=== PATIENT | male | born 1950 | race Caucasian/White ===

== ENCOUNTER 2023-03-29 13:35 | Emergency (ER) | payer MEDICARE, OTHER, SELFPAY ==
[2023-03-29 13:53] VITALS: BP 217/112; PULSE 63; RESP 18; TEMP 36.3; O2SAT 97; BMI 33.2
--- NOTE | 2023-03-29 15:18 | CRLHL7_ITS ---
For Patients: As a result of the Cures Act, medical imaging exams and procedure reports are released immediately into your electronic medical record. You may view this report before your referring provider. If you have questions, please contact your health care provider. INDICATION: Hypertension. TECHNIQUE: AP portable seated upright chest x-ray. COMPARISON: None. FINDINGS: Clear lungs. Normal heart size. No evidence for hilar or mediastinal lymphadenopathy. Advanced degenerative arthritis of the shoulders with near [id number] of the glenohumeral joints. IMPRESSION: No acute cardiopulmonary process identified. Dictated by Grant Sneed MD @ 03/29/2023 4:03:19 PM (Electronically Signed)
[2023-03-29 15:42] LABS: Basophils Absolute Auto 0.01 K/uL (0.00-0.30); Basophils Percent Auto 0.1 % (0.0-3.0); Eosinophils Absolute Auto 0.04 K/uL (0.00-0.50); Eosinophils Percent Auto 0.6 % (0.0-7.0); Hematocrit 44.2 % (37.0-53.0); Hemoglobin* 14.7 gm/dL (13.5-17.5); Lymphocytes Percent Auto 16.4 % (20-44); Mean Corpuscular HGB Conc 33 gm/dL (32-36); Mean Corpuscular Hemoglobin 31 pg (26-34); Mean Corpuscular Volume 94 fL (80-100); Monocytes Percent Auto 6.3 % (0.0-11.0); Neutrophils Percent Auto 76.6 % (42.0-72.0); Platelet Count* 266 K/uL (140-440); RDW Coefficient of Variation % 12.7 % (11.5-15.5); Red Blood Count 4.69 m/uL (4.30-5.90); White Blood Count* 6.94 K/uL (4.50-11.00)
[2023-03-29 16:00] VITALS: PULSE 64; RESP 20; O2SAT 96
[2023-03-29 16:00] LABS: Chloride* 102 mmol/L (96-114)
[2023-03-29 16:01] LABS: Potassium* 3.9 mmol/L (3.6-5.1); Sodium* 138 mmol/L (135-149)
[2023-03-29 16:03] VITALS: BP 211/157
[2023-03-29 16:03] LABS: Creatinine* 0.8 mg/dL (0.5-1.5); Est. Creatinine Clearance* 75.44; Estimated Glomerular Filt Rate 95 ml/min
[2023-03-29 16:04] LABS: Blood Urea Nitrogen* 13 mg/dL (7-30); Calcium* 9.3 mg/dL (8.4-10.6); Carbon Dioxide* 27 mmol/L (20-32); Glucose* 99 mg/dL (60-115)
[2023-03-29 16:05] LABS: Slide Review Reflex No
[2023-03-29 16:13] LABS: Appearance Urine Clear (Clear); Bilirubin Urine Negative (Negative); Blood Urine 2+ (Negative); Color Urine Yellow (Yellow); Glucose Urine Negative (Negative); Ketones Urine Negative (Negative); Leukocyte Esterase Urine Negative (Negative); Nitrite Urine Negative (Negative); Protein Urine Negative (Negative); Urobilinogen Urine 0.2 (0.2-1.0)
--- NOTE | 2023-03-29 16:14 | ED.NURSE ---
Pt reporting a pain level of 7 with his tooth, saying that the pain level comes and goes.
--- NOTE | 2023-03-29 16:23 | CRLHL7_ITS ---
For Patients: As a result of the Cures Act, medical imaging exams and procedure reports are released immediately into your electronic medical record. You may view this report before your referring provider. If you have questions, please contact your health care provider. Indication: Left ankle pain and swelling Technique: Left ankle 3 views Comparison: None Findings: Bones: No evidence of fracture. Joint spaces: Small anterior osteophytes at the left ankle joint. Soft tissues: Soft tissue swelling with some enthesopathic spurring. Impression: Soft tissue swelling without evidence of fracture. Dictated by Elroy Leach MD @ 03/29/2023 5:17:31 PM (Electronically Signed)
[2023-03-29 16:39] LABS: RBC Urine 0-2 (0-2); WBC Urine 0-2 (0-5)
[2023-03-29 16:52] LABS: Erythrocyte SedimentationRate* 13 mm/hr (2-15)
[2023-03-29] MEDS: BUPIVACAINE 0.25% 30 ML INJECTION (16:58)
[2023-03-29] MEDS: AMLODIPINE 5 MG TABLET PO (18:06)
[2023-03-29 19:45] LABS: Albumin* 4.7 g/dL (3.3-5.0)
[2023-03-29 19:48] LABS: Alanine Aminotransferase* 22 U/L (4-50); Alkaline Phosphatase* 58 U/L (40-150); Aspartate Amino Transferase* 33 U/L (12-35); Bilirubin Direct* 0.1 mg/dL (0.0-0.5); Bilirubin Total* 0.8 mg/dL (0.1-1.5); Total Protein* 8.1 g/dL (6.0-8.3)
[2023-03-29 19:57] LABS: NT Pro B Type NatriureticPept* 266 pg/mL
--- NOTE | 2023-03-29 21:28 | ED.GENADULT ---
HPI - General Adult General Chief complaint: High Blood Pressure Stated complaint: High Blood Pressure Time Seen by Provider: 03/29/23 14:18 History of Present Illness HPI narrative: Went to the dentist for extraction and had a high blood pressure readings- 202/ 168. No hx of HTN. Was sent to the ER. Did not get his extraction and was sent home with antibiotics. Continues to have pain in the tooth. 72-year-old man accompanied by spouse to the emergency department concern of elevated blood pressure. Went to the dentist this afternoon and was noted to have rather high blood pressure. Markedly elevated also on presentation here. Typically is not seen in healthcare noting himself to have been historically generally healthy. He is not having any headache blurry vision or nausea or chest pain or shortness of breath. No peripheral edema though incidentally does note that has had intermittent swelling for quite some time and gimping on his left ankle; suspect some arthritis. Dental pain fluctuates between a 2 and a 6 or a 7 perhaps. Dental issue in the right lower jaw has been present for quite some time. Reports suspicion of infection on this visit today and initiated on antibiotics; elite this prescription was provided. Has not been taken yet. Looks to be amoxicillin. Concern as expressed was that would be difficult to anesthetize with presence of infection. Related Data Previous Rx's Medication Instructions Recorded amlodipine 5 mg tablet 5 mg PO DAILY #30 tabs 03/31/23 Allergies Allergy/AdvReac Type Severity Reaction Status Date / Time No Known Drug Allergies Allergy Verified 03/29/23 13:57 Review of Systems Status of ROS: Reports: 6 or more systems reviewed and unremarkable except as noted in History and below PFSH PFS Social History Smoking Status: Former smoker How often do you have a drink containing alcohol: 4 or more times a week How many standard drinks containing alcohol do you have on a typical day: 3 or 4 How often do you have six or more drinks on one occasion: Less than monthly AUDIT-C Alcohol total score: 6 Non-prescribed substance use: denies use service: No Exam Narrative: Exam Narrative: Pleasant. A good energy. Bearded. Larger stature. Extremities are well perfused without edema though notably some swelling of the left ankle. Indicates more some posterior lateral area pain. Appreciate erythematous changes. Cranial nerves 2-12 to be intact. Oropharynx with right posterior most molar is decayed. Nontender to percussion here. Tooth apparently in question is just anterior to that there is some injury here is while not new. I do not appreciate swelling of the gingiva or elsewhere in the neck or jaw. No lymphadenopathy of the cervical chain. Lungs are clear. Heart with lower regular rate and rhythm. Abdomen is overweight. Const: Vital Signs, click to edit/add: Vital Signs - 24 hr 03/29/23 13:53 03/29/23 16:00 03/29/23 16:03 Temperature 97.3 F L Pulse Rate [Pulse Oximeter] 63 64 Respiratory Rate 18 20 Blood Pressure [Ri ght Upper Arm] 217/112 H 211/157 H Pulse Oximetry 97 96 Oxygen Delivery Me thod Room Air Documenting provider has reviewed patient's vital signs: yes Course Vital Signs Vital signs: Initial Vital Signs Temperature 97.3 F L 03/29/23 13:53 Temperature Source Temporal Artery Scan 03/29/23 13:53 Pulse Rate 63 03/29/23 13:53 Respiratory Rate 18 03/29/23 13:53 Blood Pressure 217/112 H 03/29/23 13:53 Blood Pressure Mean 147 H 03/29/23 13:53 Blood Pressure Position Sitting 03/29/23 13:53 Pulse Oximetry 97 03/29/23 13:53 Vital Signs Temperature 97.3 F L 03/29/23 13:53 Pulse Rate 63 03/29/23 13:53 Respiratory Rate 18 03/29/23 13:53 Blood Pressure 217/112 H 03/29/23 13:53 Pulse Oximetry 97 03/29/23 13:53 Temperature 97.3 F L 03/29/23 13:53 Pulse Rate 64 03/29/23 16:00 Respiratory Rate 20 03/29/23 16:00 Blood Pressure 211/157 H 03/29/23 16:03 Pulse Oximetry 96 03/29/23 16:00 Oxygen Delivery Method Room Air 03/29/23 16:00 Medical Decision Making MDM Narrative Medical decision making narrative: I did offer treatment in the form of injection for his tooth. Ultimately did not feel it was necessary but then was requesting some pain management. We did decide to take advantage of his visit here today and workup what appears to be hypertensive urgency at this point. However will evaluate for other end-organ damage to see if if this rises to more than an urgency. I did personally recheck blood pressure and remained elevated around 190 over 100. Returned eventually in very busy emergency department to inject in a posterior mental block Marcaine on the right side. This did not really take requiring some buccal injections as well. This did affect some pain relief and required re-dosing though. Labs were quite good; reassuring. Blood pressures remained elevated. Did discuss potential treatment including options for medication and potential side effects. X-rays of the right ankle and chest were done. Reviewed by me the chest x-ray showing osteoarthritic changes about the shoulders but no airspace disease and with normal cardiac silhouette. The left ankle x-ray with osteoarthritic changes about the tibial talar fibulotalar joint. I think these are most likely contributing to discomfort he has been having. There was however a large spur off the posterior aspect of the calcaneus. I discussed ankle images with Orthopedics to consider for a follow-up and possible a joint cleanout or other treatment as deemed appropriate. Given 1st dose of 5 mg of amlodipine in the emergency department See patient discharge plan for more thoughts. Lab Data Lab results reviewed: Yes I reviewed the patient's lab results Labs: Lab Results 03/29/23 03/29/23 Range/Units 15:36 15:52 WBC 6.94 (4.50-11.00) K/uL RBC 4.69 (4.30-5.90) m/uL Hgb 14.7 (13.5-17.5) gm/dL Hct 44.2 (37.0-53.0) % MCV 94 (80-100) fL MCH 31 (26-34) pg MCHC 33 (32-36) gm/dL RDW Coeff of Yas 12.7 (11.5-15.5) % Plt Count 266 (140-440) K/uL Neut % (Auto) 76.6 H (42.0-72.0) % Lymph % (Auto) 16.4 L (20-44) % [place] % (Auto) 6.3 (0.0-11.0) % Eos % (Auto) 0.6 (0.0-7.0) % Baso % (Auto) 0.1 (0.0-3.0) % Neut # (Auto) 5.30 (1.7-7.0) K/uL Lymph # (Auto) 1.10 (0.90-2.90) K/uL [place] # (Auto) 0.40 (0.00-0.90) K/UL Eos # (Auto) 0.04 (0.00-0.50) K/uL Baso # (Auto) 0.01 (0.00-0.30) K/uL ESR 13 (2-15) mm/hr Sodium 138 (135-149) mmol/L Potassium 3.9 (3.6-5.1) mmol/L Chloride 102 (96-114) mmol/L Carbon Dioxide 27 (20-32) mmol/L BUN 13 (7-30) mg/dL Creatinine 0.8 (0.5-1.5) mg/dL Estimated Creat Clear 75.44 Estimated GFR 95 ml/min Glucose 99 (60-115) mg/dL Calcium 9.3 (8.4-10.6) mg/dL Total Bilirubin 0.8 (0.1-1.5) mg/dL Direct Bilirubin 0.1 (0.0-0.5) mg/dL AST 33 (12-35) U/L ALT 22 (4-50) U/L Alkaline Phosphatase 58 (40-150) U/L NT-Pro-B Natriuret Pep 266 pg/mL Total Protein 8.1 (6.0-8.3) g/dL Albumin 4.7 (3.3-5.0) g/dL Urine Color Yellow (Yellow) Urine Appearance Clear (Clear) Urine pH 7.0 (5.0-8.5) Ur Specific [place] 1.020 (1.000-1.030) Urine Protein Negative (Negative) Urine Glucose (UA) Negative (Negative) Urine Ketones Negative (Negative) Urine Blood 2+ A (Negative) Urine Nitrite Negative (Negative) Urine Bilirubin Negative (Negative) Urine Urobilinogen 0.2 (0.2-1.0) Ur Leukocyte Esterase Negative (Negative) Urine RBC 0-2 (0-2) Urine WBC 0-2 (0-5) Ur Squamous Epith Cells None (None-Few) Urine Bacteria None (None) ECG Data Attestation: I personally reviewed and interpreted this ECG as follows: (Normal sinus rhythm rate of 60. No ischemic changes) Discharge Plan Discharge Clinical Impression: Hypertensive urgency, Osteoarthritis Patient Disposition: Home w/ Parent or Adult Condition: Improved Additional Instructions: Go ahead and check your blood pressures daily or every other day after period of relaxation. Take these reports to follow up in primary care visit that you are going to call to make 1st thing Saturday morning. If you want to pursue cleaning out that joint, can check with orthopaedics locally at phone number [phone]. I am waiting to hear back from them and will call you if they do not feel they could take care of this joint. At that point you could try any of the orthopedic groups in the [facility] or elsewhere. I have personally used [facility] as I mentioned. We can get you a disc of images if you need. Should you choose to start blood pressure medication, I have sent in amlodipine to your pharmacy; typical dosing is 10 mg; I have started you at 5. The potential side effect of this medication is lower extremity edema which might be less likely in some of the other medications in the same class. Amlodipine works by relaxing smooth muscle which therefore dilates the ?pipes?. Thereby decreasing the pressure in the system. Can probably advance the time dosing of this amlodipine by 6 hours or so a day until you are taking it in the morning. You will probably know within a week whether not you need to be on a higher dosing. Otherwise can supply you with pain pills in the form of [place] and amoxicillin, your antibiotic, from the [email or web address] in the [place]. Unfortunately we do not have the 875 mg pill. Will need to take 500 mg 3 times a day instead of the higher dose at 2 times a day that you were prescribed. Eight days of antibiotics will probably be enough. Recheck your urine due to the small amount of blood that was present in about 2 weeks. A pleasure to talk with you. Good luck. Prescriptions: New amlodipine 5 mg tablet 5 mg PO DAILY Qty: 30 0RF Follow Up/Referrals: Provider,Not a Local [Primary Care Provider] - Stand Alone Forms: [employer] Info Instructions
--- NOTE | 2023-03-30 15:16 | ED.NURSE ---
Pt called, states amlodipine was not sent into the pharmacy. Per chart, no meds were sent. Dr Bonner's note not in. Dr Bonner will be in tonight at [address]. Per Dr Nicole, ok to wait for Dr Bonner to send in med. Pt updated and ok with plan. Meds to be called in to [facility] in [place].
== END 2023-03-29 18:23 | disposition home or self-care (01) ==
PROVIDERS: Emergency Provider Family Medicine
DX: I16.0 Hypertensive urgency (principal); K08.89 Other specified disorders of teeth and supporting structures; M19.072 Primary osteoarthritis, left ankle and foot; M19.071 Primary osteoarthritis, right ankle and foot
CPT/HCPCS: 36415; 64450; 71045; 73610; 80048; 80076; 81001; 83880; 85025; 85651; 99284; A9270; J3490